=== PATIENT | female | born 2000 | race Caucasian/White ===

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

== ENCOUNTER 2019-05-17 23:38 | Emergency (ER) | payer OTHER ==
[2019-05-18] VITALS: BP 123/69; PULSE 96; TEMP 98.2; BMI 28.3
--- NOTE | 2019-05-18 03:18 | PDOC ---
History of Present Illness - General Chief Complaint: Urinary Problem Stated Complaint: URINARY PROBLEM History Source: Patient Exam Limitations: No Limitations - History of Present Illness Initial Comments: 18 yo F with hx of previous UTI 1 year ago presents to the emergency department with pain on urination for the past 3 days. Per the patient, it feels like her previous episode of UTI. denies the following: flank pain, fevers, chills, nausea, vomiting, chest pain, SOB, diarrhea, hematochezia, hematuria, vaginal bleeding, vaginal discharge, abdominal pain, and lower back pain. Allergies: NKDA Past History - Past Medical History Allergies/Adverse Reactions: Allergies Allergy/AdvReac Type Severity Reaction Status Date / Time No Known Allergies Allergy Verified 05/17/19 23:57 Home Medications: Ambulatory Orders Cephalexin Monohydrate [Keflex -] 500 mg PO BID #14 capsule 05/18/19 COPD: No - Immunization History Immunization Up to Date: Yes - Psycho Social/Smoking Cessation Hx Smoking History: Never smoked Have you smoked in the past 12 months: No Hx Alcohol Use: No Drug/Substance Use Hx: No Substance Use Type: None Review of Systems - Review of Systems Able to Perform ROS?: Yes Is the patient limited [place] proficient: No Constitutional: No: Chills, Diaphoresis, Fever, Weakness HEENTM: No: Eye Pain, Ear Pain, Nose Pain, Throat Pain, Mouth Pain Respiratory: No: Cough, Shortness of Breath Cardiac (ROS): No: Chest Pain, Lightheadedness, Palpitations ABD/GI: No: Constipated, Diarrhea, Nausea, Rectal Bleeding, Vomiting, Tarry Stools : Yes: Dysuria. No: Discharge, Flank Pain, Hematuria Musculoskeletal: No: Back Pain, Joint Pain, Neck Pain Integumentary: No: Bruising, Rash Neurological: No: Headache, Tingling Psychiatric: No: Change in Appetite Endocrine: No: Unexplained Weight Loss Hematologic/Lymphatic: No: Anemia *Physical Exam - Vital Signs Last Vital Signs Temp Pulse Resp BP Pulse Ox 98.2 F 96 H 14 123/69 99 05/17/19 23:52 05/17/19 23:52 05/17/19 23:52 05/17/19 23:52 05/17/19 23:52 - Physical Exam General Appearance: Yes: Nourished, Appropriately Dressed. No: Apparent Distress, Intoxicated HEENT: positive: EOMI, PAULINE, Normal Voice, Symmetrical, Pharynx Normal, Hearing Grossly Normal. negative: Pale Conjunctivae, Scleral Icterus (R), Scleral Icterus (L), Muffled/Hoarse voice, Pharyngeal Erythema, Tonsillar Exudate, Tonsillar Erythema, Nasal Congestion, Rhinorrhea, Sinus Tenderness, Excessive drooling Neck: positive: Trachea midline, Supple. negative: Tender, Lymphadenopathy (R) , Lymphadenopathy (L), Tender lateral, Tender midline Respiratory/Chest: positive: Lungs Clear, Normal Breath Sounds. negative: Chest Tender, Respiratory Distress, Accessory Muscle Use, Crackles, Rales, Rhonchi, Stridor, Wheezing Cardiovascular: positive: Regular Rhythm, Regular Rate, S1, S2. negative: Systolic Murmur Gastrointestinal/Abdominal: positive: Normal Bowel Sounds, Flat, Soft. negative : Tender, Distended, Guarding, Rebound Lymphatic: negative: Adenopathy Musculoskeletal: positive: Normal Inspection. negative: CVA Tenderness, Vertebral Tenderness Extremity: positive: Normal Capillary Refill, Normal Inspection, Normal Range of Motion. negative: Tender, Swelling, Calf Tenderness, Erythema Integumentary: positive: Normal Color, Dry, Warm. negative: Rash, Swelling, Ecchymosis Neurologic: positive: Fully Oriented, Alert, Normal Mood/Affect Medical Decision Making - Medical Decision Making 18 yo F with hx of previous UTI 1 year ago presents to the emergency department with pain on urination for the past 3 days. Initial vitals: Initial Vital Signs Temp Pulse Resp BP Pulse Ox 98.2 F 96 H 14 123/69 99 05/17/19 23:52 05/17/19 23:52 05/17/19 23:52 05/17/19 23:52 05/17/19 23:52 Work up: patient complaining of dysuria without fever and flank pain. unlikely to be pyelonephritis Laboratory Tests 05/18/19 05/18/19 03:40 04:04 Urine Color Yellow Urine Appearance Clear Urine pH 7.0 D Ur Specific [place] 1.024 Urine Protein Negative Urine Glucose (UA) Negative Urine Ketones Negative Urine Blood Negative Urine Nitrite Negative Urine Bilirubin Negative Urine Urobilinogen 0.2 Ur Leukocyte Esterase 1+ H Urine WBC (Auto) 15 Urine RBC (Auto) 2 Urine Casts (Auto) 7 U Epithel Cells (Auto) 15.8 U Sm Round Cell (Auto) none seen Urine Bacteria (Auto) 458.9 Urine HCG, Qual Negative UA shows UTI. negative . Prescribed keflex for UTI management and to be discharged with PMD follow up within 1 week after discharge Dispo: Discharge Discharge - Discharge Information Problems reviewed: Yes Clinical Impression/Diagnosis: UTI (urinary tract infection) Disposition: HOME - Additional Discharge Information Prescriptions: Cephalexin Monohydrate [Keflex -] 500 mg PO BID #14 capsule - Follow up/Referral Referrals: [facility] [place] [Provider Group] - Patient Discharge Instructions Patient Printed Discharge Instructions: DI for Urinary Tract Infection (UTI) Additional Instructions: You were seen for your burning urination. You have an UTI. Please take the antibiotics as prescribed. Please return to the emergency department for worsening or new concerning symptoms. Thank you. Please see your primary medical doctor within 1 week after discharge. - Post Discharge Activity
--- NOTE | 2019-05-18 03:28 | PDOC ---
Attending Attestation - Resident Resident Name: Dany Lin - ED Attending Attestation I have performed the following: I have examined & evaluated the patient, The case was reviewed & discussed with the resident, I agree w/resident's findings & plan - HPI HPI: 05/18/19 04:51 see resident hpi - Physicial Exam PE: 05/18/19 04:51 agree with resident exam - Medical Decision Making 05/18/19 04:51 Well-appearing 18-year-old female with dysuria Urinalysis consistent with urinary tract infection There are no indicators of pyelonephritis Will DC on Keflex
[2019-05-18 04:26] LABS: EPI CELLS 15.8 /HPF (0-5/HPF); HYALINE CASTS 7 /lpf (0-8); URINE APPEARANCE CLEAR; URINE BACTERIA 458.9 /hpf (NEGATIVE); URINE BILIRUBIN NEGATIVE (NEGATIVE); URINE COLOR YELLOW; URINE GLUCOSE (UA) NEGATIVE (NEGATIVE); URINE KETONE NEGATIVE (NEGATIVE); URINE LEUK ESTERASE 1+ (NEGATIVE); URINE NITRITE NEGATIVE (NEGATIVE); URINE PROTEIN NEGATIVE (NEGATIVE); URINE RBC 2 /hpf (0-4); URINE UROBILINOGEN 0.2 mg/dL (0.2-1.0); URINE WBC 15 /hpf (0-5)
[2019-05-18] MEDS ORDERED: CEPHALEXIN MONOHYDRATE 500 MG CAPSULE (UD) PO ONE (04:44)
[2019-05-18] MEDS ORDERED: CEPHALEXIN MONOHYDRATE 500 MG CAPSULE (UD) ONE ×2 (05:08→05:28)
== END 2019-05-18 05:32 | disposition home or self-care (01) ==
LOC: JER 23:38
DX: N39.0 Urinary tract infection, site not specified (principal)
CPT/HCPCS: 81003; 84703; 87086; 99282-25

== ENCOUNTER 2019-06-17 12:40 | Emergency (ER) | payer OTHER ==
[2019-06-17 12:45] VITALS: TEMP 98.5; BMI 28.3
--- NOTE | 2019-06-17 16:08 | PDOC ---
History of Present Illness - General History Source: Patient Exam Limitations: No Limitations - History of Present Illness Travel History: No Initial Comments: 06/17/19 14:05 18-year-old female presents the ED with complaints of intermittent lower abdominal cramping for the past few months. Patient states has been to urgent care clinics had urine STD testing, and blood work done with no significant findings except for bacterial vaginosis which she started MetroGel yesterday Patient denies vaginal discharge, urinary complaints or irregular menses. Patient states has never had a Pap but has an appointment with STRUCTURAL ENGINEERING PROJECT MANAGER this upcoming Friday, with Dr. Brown. Patient also states 2 episodes of Diarrhea over the past week. Patient denies aggravating or alleviating factors and has not taken anything for the pain 06/17/19 16:09 Timing/Duration: reports: intermittent Quality: reports: mild, cramping Abdominal Pain Onset Location: reports: suprapubic Pain Radiation: reports: no radiation Activities at Onset: reports: none Aggravating Factors: improves with: None Alleviating Factors: improves with: None <Nara Henry - Last Filed: 06/17/19 17:25> <Angelique Sparks - Last Filed: 06/19/19 10:22> - General Chief Complaint: Pain, Acute Stated Complaint: ABD PAIN Time Seen by Provider: 06/17/19 13:12 Past History - Travel Traveled outside of the country in the last 30 days: No Close contact w/someone who was outside of country & ill: No - Past Medical History COPD: No - Immunization History Immunization Up to Date: Yes - Psycho Social/Smoking Cessation Hx Smoking History: Never smoked Have you smoked in the past 12 months: No Hx Alcohol Use: No Drug/Substance Use Hx: No Substance Use Type: None Patient Lives Alone: No Lives with/in: parents <Nara Henry - Last Filed: 06/17/19 17:25> <Angelique Sparks - Last Filed: 06/19/19 10:22> - Past Medical History Allergies/Adverse Reactions: Allergies Allergy/AdvReac Type Severity Reaction Status Date / Time No Known Allergies Allergy Verified 06/17/19 12:41 Home Medications: Ambulatory Orders Bupropion HCl [Bupropion HCl Sr] 100 mg PO ASDIR 06/17/19 Review of Systems - Review of Systems Able to Perform ROS?: No Is the patient limited [place] proficient: No Constitutional: No: Symptoms Reported HEENTM: No: Symptoms Reported Respiratory: No: Symptoms reported Cardiac (ROS): No: Symptoms Reported ABD/GI: No: Symptoms Reported : No: Symptoms Reported Musculoskeletal: No: Symptoms Reported Integumentary: No: Symptoms Reported Neurological: No: Symptoms reported Endocrine: No: Symptoms Reported Hematologic/Lymphatic: No: Symptoms Reported <Nara Henry - Last Filed: 06/17/19 17:25> *Physical Exam - Vital Signs Last Vital Signs Temp Pulse Resp BP Pulse Ox 98.5 F 100 H 20 125/78 100 06/17/19 12:43 06/17/19 12:43 06/17/19 12:43 06/17/19 12:43 06/17/19 12:43 - Physical Exam General Appearance: Yes: Nourished, Appropriately Dressed. No: Apparent Distress HEENT: negative: Pale Conjunctivae Neck: positive: Supple Respiratory/Chest: positive: Lungs Clear, Normal Breath Sounds. negative: Respiratory Distress, Accessory Muscle Use Cardiovascular: positive: Regular Rhythm, Regular Rate, Murmur Gastrointestinal/Abdominal: positive: Soft. negative: Tenderness Integumentary: positive: Normal Color, Warm, Moist Neurologic: positive: Motor Strength 5/5 (ambulatory) <Nara Henry - Last Filed: 06/17/19 17:25> - Vital Signs Last Vital Signs Temp Pulse Resp BP Pulse Ox 98.5 F 71 18 122/70 100 06/17/19 12:43 06/17/19 16:45 06/17/19 16:45 06/17/19 16:45 06/17/19 12:43 <Angelique Sparks - Last Filed: 06/19/19 10:22> ED Treatment Course - RADIOLOGY Radiology Studies Ordered: Category Date Time Status PELVIC / BLADDER US [US] Stat Ultrasound 06/17/19 13:20 Completed <Nara Henry - Last Filed: 06/17/19 17:25> - ADDITIONAL ORDERS Additional order review: 06/17/19 16:08 Urine Culture - Final Urine - Urine Clean Catch NO GROWTH OBTAINED 06/17/19 13:41 Urine Culture - Final Urine - Urine Clean Catch NO GROWTH OBTAINED <Angelique Sparks - Last Filed: 06/19/19 10:22> Medical Decision Making - Medical Decision Making 06/17/19 14:32 Chief complaint: Lower abdominal pain for the past 2 months intermittently without aggravating or alleviating factors Exam: Patient with no abdominal tenderness on exam. No vaginal discharge. Plan: Urinalysis urine culture urine along with pelvic ultrasound. Patient offered pain medication but states pain is not severe currently. 06/17/19 16:35 Unable to locate urine specimen. Patient will have urine resent and call with results since ultrasound has resulted and is essentially negative. Patient has an appoint with [facility]UCT[facility] PROJECT MANAGER on this upcoming Friday06/17/19 17:25 Laboratory Tests 06/17/19 06/17/19 16:08 16:08 Ur Specific [place] 1.008 L Urine Ketones 2+ H Ur Leukocyte Esterase Negative Urine HCG, Qual Negative <Nara Henry - Last Filed: 06/17/19 17:25> - Medical Decision Making The patient was seen and evaluated in conjunction with midlevel provider under my direct supervision, ancillary studies were reviewed. I agree with the plan as outlined with NAMRATA Henry. HPI, workup/dispo as outlined. VS reviewed, wnl. neg hcg, anticipate discharge, pcp followup, return precautions 06/19/19 10:21 <Angelique Sparks - Last Filed: 06/19/19 10:22> Discharge - Discharge Information Problems reviewed: Yes <Nara Henry - Last Filed: 06/17/19 17:25> <Angelique Sparks - Last Filed: 06/19/19 10:22> - Discharge Information Clinical Impression/Diagnosis: Suprapubic pain Condition: Good Disposition: HOME - Patient Discharge Instructions Patient Printed Discharge Instructions: DI for Abdominal Pain-Adult Additional Instructions: Please follow-up with Dr. Brown on Friday as scheduled. If no improvement and results of Pap smear and exam is normal please consider follow-up with a pediatric barbering instructor. I will call you with the results of the urine once they have been resulted
[2019-06-17 17:03] LABS: PH,URINE 7.5 (5.0-8.0); URINE APPEARANCE CLEAR; URINE BILIRUBIN NEGATIVE (NEGATIVE); URINE COLOR YELLOW; URINE GLUCOSE (UA) NEGATIVE (NEGATIVE); URINE KETONE 2+ (NEGATIVE); URINE LEUK ESTERASE NEGATIVE (NEGATIVE); URINE NITRITE NEGATIVE (NEGATIVE); URINE PROTEIN NEGATIVE (NEGATIVE); URINE UROBILINOGEN 0.2 mg/dL (0.2-1.0)
[2019-06-17 17:58] VITALS: BP 122/70; PULSE 71
== END 2019-06-17 16:50 | disposition home or self-care (01) ==
LOC: JER 12:40
DX: R10.2 Pelvic and perineal pain (principal); Z87.42 Personal history of other diseases of the female genital tract
CPT/HCPCS: 76856-TC; 81003; 84703; 87086; 99284-25